=== PATIENT | male | born 1985 | race Caucasian/White ===

== ENCOUNTER 2021-08-21 22:38 | Emergency (ER) | payer OTHER ==
[2021-08-22 01:13] LABS: Amphetamine Screen,Urine Not Detected (NotDetected); Barbiturate Screen,Urine Not Detected (NotDetected); Benzodiazepines Screen,Urine Not Detected (NotDetected); Cocaine Screen,Urine Not Detected (NotDetected); Methadone Screen, Urine Not Detected (NotDetected); Opiate Screen,Urine Not Detected (NotDetected); Oxycodone Screen, Urine Not Detected (NotDetected); Phencyclidine Screen,Urine Not Detected (NotDetected); Tricyclic Antidepressant,Urine Not Detected (NotDetected); Urn Cannabinoid Scrn Not Detected (NotDetected)
--- NOTE | 2021-08-22 03:02 | ED ---
General Adult HPI - General Chief complaint: Psychiatric Symptoms Stated complaint: Mental Health Time Seen by Provider: 08/22/21 00:16 Source: patient, family, RN notes reviewed, old records reviewed Mode of arrival: ambulatory Limitations: no limitations - History of Present Illness Initial comments: Patient is a 36-year-old male with past medical history remarkable for depression and anxiety presents in the department concern for worsening depression and anxiety. He has noticed that lately he has been having reduced sleep, increased anxiety, and constant tiredness. States he may require medications. Would like to speak with psychiatry. Denies any other acute complaints including shortness breath, chest pain, abdominal pain at this time. Denies any alcohol use or drug use. Presents over concern for his worsening anxiety and depression. - Related Data Allergies Allergy/AdvReac Type Severity Reaction Status Date / Time No Known Allergies Allergy Verified 08/22/21 00:14 Review of Systems ROS Statement: Those systems with pertinent positive or pertinent negative responses have been documented in the HPI. Review of Systems: CONST: Denies fever EYES: Denies blurry vision ENT: Denies nasal congestion C/V: Denies Chest pain RESP: Denies shortness of breath GI: Denies abdominal pain : Denies dysuria SKIN: Denies rash. MSK: Denies joint pain. NEURO: Denies headache PSYCH: Denies suicidal and homicidal ideations/plans/attempts. Denies visual or auditory hallucinations. ROS Other: All systems not noted in ROS Statement are negative. Past Medical History Additional Past Medical History / Comment(s): depression, anxiety History of Any Multi-Drug Resistant Organisms: None Reported Past Surgical History: Appendectomy Past Psychological History: Anxiety, Depression Smoking Status: Current every day smoker Past Alcohol Use History: Occasional Past Drug Use History: None Reported General Exam - General Exam Comments Initial Comments: General: Appears in no acute distress. Low affect. HEAD: Normal with no signs of head trauma. EYES: PERRLA, EOMI, conjunctiva normal, no discharge. ENT: Hearing grossly intact, normal oropharynx. RESPIRATORY: Clear breath sounds bilaterally. No wheezes, rales, or rhonchi. C/V: Regular rate and rhythm. S1 and S2 auscultated, no edema, peripheral pulses 2+ and intact throughout ABD: Abd is soft, nontender, nondistended EXT: Normal range of motion, no obvious deformity SKIN: No rashes or lesions observed on exposed skin. NEURO: Alert and Oriented 4. No focal deficits. Limitations: no limitations Course Vital Signs 08/22/21 00:08 Temperature 98.6 F Pulse Rate 102 H Respiratory 22 Rate Blood Pressure 151/92 O2 Sat by Pulse 97 Oximetry Medical Decision Making - Medical Decision Making The patient's presentation and physical exam, I do believe he requires psychiatric evaluation. UDS was unremarkable. BAT was 0. I do believe that this time patient is medically cleared for evaluation by psychiatry. I do not believe that he requires any further laboratory studies or imaging. He was in agreement this plan. Disposition is pending psychiatric evaluation. Patient was evaluated by inpatient psychiatry. Was determined that he does not meet inpatient criteria. Will be discharged home with a safety plan in stable condition. - Lab Data Lab Results 08/22/21 Range/Units 00:25 Urine Opiates Screen Not Detected (NotDetected) Ur Oxycodone Screen Not Detected (NotDetected) Urine Methadone Screen Not Detected (NotDetected) Ur Propoxyphene Screen Not Detected (NotDetected) Ur Barbiturates Screen Not Detected (NotDetected) U Tricyclic Antidepress Not Detected (NotDetected) Ur Phencyclidine Scrn Not Detected (NotDetected) Ur Amphetamines Screen Not Detected (NotDetected) U Methamphetamines Scrn Not Detected (NotDetected) U Benzodiazepines Scrn Not Detected (NotDetected) Urine Cocaine Screen Not Detected (NotDetected) U Marijuana (THC) Screen Not Detected (NotDetected) Disposition Clinical Impression: Encounter for psychiatric assessment Disposition: HOME SELF-CARE Condition: Stable Is patient prescribed a controlled substance at d/c from ED?: No Referrals: None,Stated [Primary Care Provider] - 1-2 days
[2021-08-22 04:03] VITALS: BP 129/79; PULSE 77; RESP 20; TEMP 98.5
== END 2021-08-22 04:03 | disposition home or self-care (01) ==
LOC: EC 22:38
DX: Z04.6 Encounter for general psychiatric examination, requested by authority (principal); F17.200 Nicotine dependence, unspecified, uncomplicated
CPT/HCPCS: 80306; 82075; 99284